=== PATIENT | female | born 1950 | race Caucasian/White ===

== ENCOUNTER 2017-04-28 09:02 | Inpatient (IN) | payer OTHER ==
[~2017-04-28] VITALS: Ht 154.9 cm; Wt 70.5 kg
[~2017-04-28 09:02] MED LIST: ALEVE220 MG PO; ARTIFICIAL TEAR15 M6 BOTH EYES; COUMADIN2.5 MG PO; IRON325 M1 PO; PERCOCET 5/31 TABLET PO; TYLENOL EXTRA500 MG PO; VISTARIL25 MG PO; ZICAM PO
[2017-04-28 10:13] VITALS: BP 141/75
[2017-04-28 16:50] VITALS: BP 133/77
[2017-04-28 17:23] VITALS: BP 114/68
[2017-04-28 20:30] VITALS: BP 117/69
[2017-04-28 22:22] VITALS: BP 107/59
[2017-04-29 00:30] VITALS: BP 95/56
[2017-04-29 04:20] VITALS: BP 105/55
[2017-04-29 07:26] LABS: HEMATOCRIT 32.1 % (36.0-46.0); MCV 89.9 FL (83-99)
[2017-04-29 07:45] LABS: ANION GAP 12 MEQ/L (2-14); CHLORIDE 103 MEQ/L (99-109); GFR ESTIMATE (CALCULATED) 59 mL/min/; GLUCOSE 106 mg/dL (70-99); POTASSIUM 4.3 MEQ/L (3.7-5.4); SAMPLE HEMOLYSIS CHECK 0; SAMPLE ICTERIC CHECK 0; SAMPLE LIPEMIA CHECK 0; SODIUM 141 MEQ/L (136-147); UREA NITROGEN (BUN) 17 mg/dL (9-23)
[2017-04-29 07:47] LABS: INTER. NORMALIZED RATIO 1.1; PROTHROMBIN TIME 10.8 (9.2-11.2)
[2017-04-29 08:00] VITALS: BP 99/52
[2017-04-29 12:09] VITALS: BP 100/59
[2017-04-29 15:53] VITALS: BP 107/58
[2017-04-29 20:02] VITALS: BP 132/63
[2017-04-30 00:30] VITALS: BP 129/65
[2017-04-30 04:28] VITALS: BP 135/72
[2017-04-30 06:49] LABS: HEMATOCRIT 30.7 % (36.0-46.0)
[2017-04-30 07:24] LABS: INTER. NORMALIZED RATIO 1.4
[2017-04-30 08:00] VITALS: BP 131/62
[2017-04-30] MEDS ORDERED: SENNA PLUS TAB1 EACH PO (08:19)
[2017-04-30] MEDS ORDERED: COUMADIN1 MG PO (08:21)
[2017-04-30] MEDS ORDERED: HYDROCODON-ACE1 EAC7 PO (08:21)
[2017-04-30 12:13] VITALS: BP 145/70
== END 2017-04-30 15:55 | DRG 470 ==
LOC: 2SOUTH 09:02 → 3WEST 16:25
PROVIDERS: Orthopaedic Surgery
PROC: 0SRD0J9 Replacement of Left Knee Joint with Synthetic Substitute, Cemented, Open Approach (ICD-10-PCS; principal; 2017-04-28)
DX: M17.12 Unilateral primary osteoarthritis, left knee (principal); E78.5 Hyperlipidemia, unspecified; D69.49 Other primary thrombocytopenia; M17.11 Unilateral primary osteoarthritis, right knee
CPT/HCPCS: 80048; 85014; 85018; 85610; C1713; J0131; J0690; J1100; J1885; J2250; J2405; J3010; J7050; J7120

== ENCOUNTER 2017-05-21 13:06 | Emergency (ER) | payer OTHER ==
[~2017-05-21] VITALS: Ht 152.4 cm; Wt 69.1 kg
[~2017-05-21 13:06] MED LIST changes: +COUMADIN1 MG PO; +HYDROCODON-ACE1 EAC7 PO; +SENNA PLUS TAB1 EACH PO
[2017-05-21 14:32] LABS: HEMATOCRIT 34.2 % (36.0-46.0); MCHC 32.7 G/DL (30.0-36.0); MCV 88.6 FL (83-99); PLATELET COUNT 513 K/uL (156-360); RBC DIS.WIDTH-CV 13.2 % (11.8-14.6); RBC DIS.WIDTH-SD 42.8 % (39-53); RED BLOOD COUNT 3.86 M/uL (3.80-5.20); WHITE BLOOD COUNT 9.5 K/uL (4.1-10.2)
[2017-05-21 14:41] LABS: CHLORIDE 104 mEq/L (99-109); POTASSIUM 4.3 mEq/L (3.7-5.4); SODIUM 139 mEq/L (136-147)
[2017-05-21 14:43] LABS: GLUCOSE 112 mg/dL (70-99)
[2017-05-21 14:44] LABS: ANION GAP 11 MEQ/L (2-14)
[2017-05-21 14:47] LABS: GFR ESTIMATE (CALCULATED) > 59 mL/min/
[2017-05-21 14:48] LABS: UREA NITROGEN (BUN) 22 mg/dL (9-23)
[2017-05-21 14:54] LABS: INTER. NORMALIZED RATIO 1.7; PROTHROMBIN TIME 17.5 (9.2-11.2); PTT 36.6 (25-32)
[2017-05-21] MEDS ORDERED: KEFLEX500 MG PO (15:35)
[2017-05-21 15:53] VITALS: BP 133/96
== END 2017-05-21 15:54 | disposition home or self-care (01) ==
LOC: EME 13:06
PROVIDERS: Nurse Practitioner Family
PROC: 2Y41X5Z Packing of Nasal Region using Packing Material (ICD-10-PCS; principal; 2017-05-21)
DX: R04.0 Epistaxis (principal); D64.9 Anemia, unspecified; Z98.890 Other specified postprocedural states; Z96.652 Presence of left artificial knee joint; Z79.01 Long term (current) use of anticoagulants; Z79.82 Long term (current) use of aspirin
CPT/HCPCS: 80048; 85027; 85610; 85730; 99281; 99284